=== PATIENT | male | born 1985 | race Caucasian/White ===

== ENCOUNTER 2021-05-02 19:48 | Emergency (ER) | payer MEDICAID, SELFPAY ==
[2021-05-02 19:49] VITALS: BP 136/94; PULSE 91; RESP 18; TEMP 36.1; O2SAT 100; BMI 25.1
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
--- NOTE | 2021-05-02 22:23 | CM.ED ---
TYE Note Per MD he would like this senior copywriter or crisis to see patient. However, due to time this senior copywriter will refer to Crisis. SW called crisis and made referral. SW printed out packet for crisis when they arrive. stenographer print [employer] Pepper Updated and TORIE Echeverria updated. Plan: Crisis to assess Melania Hector HADLEY
[2021-05-02] MEDS: dexAMETHasone 4 MG Tablet 10 MG PO (22:29)
[2021-05-02] MEDS: LORazepam 1 MG Tablet PO (22:33)
--- NOTE | 2021-05-02 22:51 | ED.RN ---
per Dr Sanabria, since pt drove himself to the ED, do not give oral ativan but send it home with the patient.
[2021-05-03 01:18] VITALS: BP 118/82
[2021-05-03 01:29] VITALS: BP 118/81
== END 2021-05-03 01:30 | disposition home or self-care (01) ==
PROVIDERS: Emergency Provider Emergency Medicine
DX: R51.9 Headache, unspecified (principal); F41.9 Anxiety disorder, unspecified
CPT/HCPCS: 99283

== ENCOUNTER 2021-05-07 10:56 | Emergency (ER) | payer MEDICAID, SELFPAY ==
[2021-05-07 10:56] VITALS: BP 152/91; PULSE 109; RESP 18; TEMP 36.8; O2SAT 100; BMI 23.6
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
[2021-05-07] MEDS: DiphenhydrAMINE 50 MG/ML Syringe 25 MG IV (11:35)
[2021-05-07] MEDS: Metoclopramide 10 MG/2 ML Vial IV (11:36)
[2021-05-07 11:43] VITALS: RESP 16
[2021-05-07 13:36] VITALS: RESP 16
--- NOTE | 2021-05-07 13:36 | ED.RN ---
REVIEWED D/C INSTRUCTIONS, FOLLOW UP CARE, AND S/S THAT WOULD WARRANT A RETURN TO THE ED WITH PT. PT VERBALIZED AN UNDERSTANDING AND DENIES FURTHER QUESTIONS FOR THIS RN. PT SKIN P/W/D, RESP EVEN AND UNLABORED, PT A&O X 3, NO DISTRESS NOTED. PT AMBULATED OUT OF ED, GAIT STEADY.
== END 2021-05-07 13:37 | disposition home or self-care (01) ==
PROVIDERS: Emergency Provider Emergency Medicine
DX: R51.9 Headache, unspecified (principal); F07.81 Postconcussional syndrome; F41.9 Anxiety disorder, unspecified; Z79.899 Other long term (current) drug therapy
CPT/HCPCS: 96374; 96375; 99283; A4216

== ENCOUNTER 2024-03-14 16:38 | Emergency (ER) | payer OTHER, SELFPAY ==
[2024-03-14 16:40] VITALS: BP 134/88; PULSE 90; RESP 18; TEMP 36.7; O2SAT 97; BMI 27.6
--- NOTE | 2024-03-14 16:51 | EKG12_ITS ---
Test Reason : Blood Pressure : / mmHG Vent. Rate : 071 BPM Atrial Rate : 071 BPM P-R Int : 152 ms QRS Dur : 110 ms QT Int : 382 ms P-R-T Axes : 068 082 067 degrees QTc Int : 415 ms Normal sinus rhythm Normal ECG Confirmed by CHANDAN CORREA, CASSIE ([id number]), legal editor BEAU CARRILLO ([id number]) on 03/20/2024 8:35:59 AM Referred By: Confirmed By:JEREMY HAWLEY MD
--- NOTE | 2024-03-14 16:54 | EX.ED.DYSGE1 ---
HPI History of Present Illness Chief Complaint: Palpitations Narrative Narrative: Patient is a 39-year-old male past medical history anxiety, depression, postconcussion syndrome who presented to the Emergency Department chief complaint of palpitations. Patient states on Wednesday he did a hot yoga class and noted that it was very hot during the class. He states that he 1 point had to leave the class and then went back in. He states that it is not always was to be this hot in the hot yoga classes. He states that he followed up with his doctor yesterday and then felt worse today. He states he called them back and they advised him to come here to the emergency department with a concern for heat exhaustion. Patient did complain that he feels like his heart is racing in his chest periodically. [facility] Medical History Depression Post concussion syndrome Concussion Migraine Anxiety Home Medications ?Medication ?Instructions ?Recorded ?Last Taken ?Type lorazepam 1 mg tablet (Ativan) 1 mg PO TID PRN anxiety #10 tabs 05/02/21 Unknown Rx topiramate 25 mg tablet 25 mg PO BID 05/02/21 Unknown History Allergy/AdvReac Type Severity Reaction Status Date / Time No Known Allergies Allergy Verified 03/14/24 16:39 Social History Smoking Status: Never smoker ROS ROS ED ROS Narrative Constitutional: Denies any fevers, chills, headaches, lightheadedness, dizziness Eyes: Denies changes double vision blurry vision Cardiovascular: Complains of palpitations note above denies chest pain Respiratory: Denies coughing wheezing shortness of breath Abdomen: Complains of some nausea denies abdominal pain vomiting diarrhea : Denies any painful NH, hematuria complete area Neurological: Denies numbness, does come tingling Musculoskeletal: Denies back pain Skin: Denies rashes or lesions EXAM Physical Exam Narrative Exam Narrative: General: Patient was lying in bed rest comfortably did not appear to be in acute distress Head: Atraumatic, normocephalic Eyes: PERRL bilaterally, EOMI bilaterally, no conjunctival injection noted Neck: Soft, supple, trachea midline Cardiovascular: Patient had a regular rate and rhythm no murmurs gallops rubs noted Respiratory: Clear to auscultation bilaterally Abdomen: Soft, nondistended, no tenderness palpation, bowel sounds present x 4 Extremities: +5/5 strength noted in the bilateral upper and lower extremities, no pedal edema noted on exam Neurological: Patient following commands knew that he is at [facility] there is 2023. Sensation grossly intact Skin: Warm, dry, intact Const Vital Signs: 03/14/24 16:40 Temperature 98.1 F Temperature Source Temporal Pulse Rate 90 Respiratory Rate 18 Blood Pressure 134/88 H Blood Pressure Mean 103 Pulse Ox 97 Oxygen Delivery Method Room Air MDM MDM MDM Narrative Medical decision making narrative: Patient is a 39-year-old male who presented to the emergency department chief complaint of nausea, palpitations and generalized not feeling well since his hot yoga class on Wednesday. Patient will have a workup performed here on the differential diagnosis includes but not limited to COVID, dehydration, heat exhaustion, tachycardia. Once workup is obtained reviewed he will be reevaluated. Patient be given IV fluids and Zofran. Patient CBC reviewed and was largely unremarkable no leukocytosis noted with this count normal 7.3, hemoglobin stable 14.1, platelet count normal at 240. Patient sodium normal 143, potassium normal at 3.9, creatinine normal at 1.17. Patient AST ALT were 24 and 33 respectively. Patient's TSH was normal at 1.49, urinalysis largely unremarkable with no evidence of infection. Patient's EKG reviewed and showed sinus rhythm with a rate of 71 bpm, troponin normal at 5. On reevaluation the patient he feels significantly improved and would like to go home at this point time. He is encouraged to continue oral hydration with water and follow-up with his primary care physician in outpatient setting. He is encouraged to return with worsening symptoms or other concerns he is agreeable with this plan all question concerns he was discharged home in stable condition Lab Data Labs: Laboratory Results - last 24 hr 03/14/24 17:07 WBC 7.3 RBC 4.90 Hgb 14.1 Hct 41.6 MCV 84.9 MCH 28.8 MCHC 33.9 RDW Std Deviation 37.2 RDW Coeff of Nguyen 12.2 Plt Count 240 MPV 10.1 Immature Gran % (Auto) 0.300 Neut % (Auto) 65.1 Lymph % (Auto) 24.2 Dickenson % (Auto) 7.1 Eos % (Auto) 2.6 Baso % (Auto) 0.7 Absolute Neuts (auto) 4.8 Absolute Lymphs (auto) 1.77 Nucleated RBC % 0 Sodium 143 Potassium 3.9 Chloride 112 H Carbon Dioxide 26.0 Anion Gap 5 BUN 19 H Creatinine 1.17 Estim Creat Clear Calc 90.65 Est GFR (MDRD) Af Amer 89 Est GFR (MDRD) Non-Af 73 BUN/Creatinine Ratio 16.2 Glucose 97 Calcium 8.7 Total Bilirubin 0.50 AST 24 ALT 33 Alkaline Phosphatase 71 Troponin I High Sens 5 Total Protein 7.2 Albumin 3.6 Globulin 3.6 Albumin/Globulin Ratio 1.0 TSH 1.49 Urine Color Yellow Urine Clarity Clear Urine pH 7.0 Ur Specific [place] 1.010 Urine Protein Negative Urine Glucose (UA) Normal Urine Ketones Negative Urine Occult Blood Negative Urine Nitrite Negative Urine Bilirubin Negative Urine Urobilinogen Normal Ur Leukocyte Esterase Negative Urine RBC 0 SEEN Urine WBC 0-5 SEEN Ur Squamous Epith Cells 0 SEEN Urine Bacteria RARE Urine Mucus 0 SEEN Discharge Plan Triage Chief Complaint: Palpitations ED Provider: Jose Manuel Encinas Dx/Rx/DC Orders Clinical Impression: Encounter for medical screening examination, Palpitations Prescriptions: No Action topiramate 25 mg tablet 25 mg PO BID Patient Comments: TAKE 1 TABLET BY MOUTH TWICE DAILY lorazepam [Ativan] 1 mg tablet 1 mg PO TID PRN (Reason: anxiety) Qty: 10 0RF Primary Care Provider: Elio Flynn Referrals: Elio Flynn MD [Primary Care Provider] - Activity Restrictions/Additional Instructions: Follow with your primary care physician outpatient setting. Return with worsening symptoms or concerns. Continue to orally hydrate with water. Print Language: German Disposition Disposition: Home, Self Care
[2024-03-14] MEDS: 0.9% Normal Saline (1000mL) 1,000 ML 999 ML IV (17:01)
[2024-03-14] MEDS: Ondansetron 4 MG/2 ML Vial IV (17:01)
[2024-03-14 17:13] LABS: Mucous, Urine 0 SEEN /hpf (<or=2+); Red Blood Cells-Urine 0 SEEN /hpf (0-5); Squamous Epithelial Cells - UA 0 SEEN /hpf (0-5)
[2024-03-14 17:18] LABS: Absolute Lymphocyte Count 1.77 X10^3/uL (0.83-4.51); Absolute Neutrophil Count 4.8 X10^3/uL (2.0-7.7); Basophil# 0.05 X10^3/uL; Basophil% 0.7 % (0-1); Eosinophil# 0.19 X10^3/uL; Eosinophils% 2.6 % (0-5); Hematocrit 41.6 % (40-54); Hemoglobin 14.1 g/dL (13.0-16.5); Lymphocyte # 1.77 X10^3/ul (0.83-4.51); Lymphocyte % 24.2 % (19-41); Mean Corp Hgb Conc 33.9 g/dL (32-36); Mean Corpuscular Hgb 28.8 pg (27.0-32.0); Mean Corpuscular Volume 84.9 fL (80-94); Mean Platelet Vol. 10.1 fl (6.2-12.0); Monocyte# 0.52 X10^3/uL; Monocyte% 7.1 % (0-10); NRBC Flagged by Analyzer 0 % (0-5); Neutrophil # 4.76 X10^3/uL (2.7-7.7); Neutrophil % 65.1 % (47-70); Platelet Count 240 K/mm3 (150-450); RBC Distribution Width CV 12.2 % (11.6-14.6); RBC Distribution Width SD 37.2 fl (35.1-43.9); White Blood Count 7.3 K/mm3 (4.4-11.0)
[2024-03-14 17:22] LABS: Color, Urine Yellow (Yellow); Glucose, Dipstick Normal (Normal); Ketone-Dipstick Negative (Negative); Leukocyte Esterase-Dipstick Negative /ul (Negative); Nitrite-Dipstick Negative (Negative); Occult Blood-Urine Negative /ul (Negative); Protein-Dipstick Negative (Negative); Urine Bilirubin Dipstick Negative (Negative); Urine Clarity Clear (Clear); Urine Urobilinogen Normal (Normal)
[2024-03-14 17:29] LABS: White Blood Cells 0-5 SEEN /hpf (0-5)
[2024-03-14 17:30] LABS: Bacteria RARE /hpf (None Seen)
[2024-03-14 17:39] LABS: AST(SGOT) 24 U/L (15-37); Alanine Aminotransfer ALT/SGPT 33 U/L (16-61); Albumin, Serum 3.6 g/dL (3.2-5.0); Alkaline Phosphatase 71 U/L (45-117); Anion Gap 5 (5-15); BUN 19 mg/dL (7-18); BUN/Creat Ratio 16.2 RATIO (10-20); Calcium,Total 8.7 mg/dL (8.5-10.1); Chloride 112 mmol/L (98-107); Creatinine, Serum 1.17 mg/dL (0.70-1.30); EST Glomerular Filtration Rate 73 mL/min (>60); Est Glom Filt Rate - Afr Amer 89 mL/min (>60); Estimated Creatinine Clearance 90.65 ml/min; Globulin 3.6 g/dL (2.2-4.2); Glucose 97 mg/dL (74-106); Potassium 3.9 mmol/L (3.5-5.1); Protein, Total 7.2 g/dL (6.4-8.2); Sodium Level 143 mmol/L (136-145); Thyroid Stim Hormone (TSH) 1.49 uIU/mL (0.358-3.74); Troponin-I HS 5 pg/mL (3.0-78.0)
[2024-03-14 18:39] VITALS: BP 120/77; PULSE 67; RESP 16; O2SAT 100
[2024-03-14 18:48] VITALS: BP 120/77; PULSE 67; RESP 16; TEMP 36.3; O2SAT 100
== END 2024-03-14 19:00 | disposition home or self-care (01) ==
PROVIDERS: Emergency Provider Emergency Medicine; PCP Family Medicine; Visit Provider Emergency Medicine
DX: R00.2 Palpitations (principal)
CPT/HCPCS: 80053; 81001; 84443; 84484; 85025; 87631; 93005; 96361; 96374; 99283; J7030; A4216; J2405